=== PATIENT | male | born 1985 | race Two or more races ===

== ENCOUNTER 2019-09-29 18:09 | Emergency (ER) | payer MEDICAID, OTHER ==
[~2019-09-29] VITALS: Ht 185.4 cm; Wt 71.0 kg
[2019-09-29 20:25] VITALS: BP 119/89
== END 2019-09-29 20:30 | disposition home or self-care (01) ==
LOC: ER 18:18
DX: Z76.0 Encounter for issue of repeat prescription (principal); G40.909 Epilepsy, unspecified, not intractable, without status epilepticus
CPT/HCPCS: 99283

== ENCOUNTER 2022-03-10 11:19 | Emergency (ER) | payer MEDICAID ==
[~2022-03-10] VITALS: Ht 182.9 cm; Wt 82.0 kg
[2022-03-10] MEDS ORDERED: SODIUM CHLORIDE 0.9% 1,000 ML IV ONE (12:15)
[2022-03-10 12:23] LABS: BASOPHILS % 0.3 % (0.0-2.0); EOSINOPHILS % 2.1 % (0.0-5.0); HEMATOCRIT. 42.1 % (42.0-52.0); HEMOGLOBIN. 13.7 g/dL (14.0-18.0); MEAN CORPUSCULAR HEMOGLOBIN 27.4 pg (28.0-32.0); MEAN CORPUSCULAR VOLUME 83.9 fL (80.0-94.0); MEAN PLATELET VOLUME 8.3 fl (7.4-10.4); NEUTROPHILS % 69.6 % (40.0-76.0); PLATELET 188 x1000/uL (130-400); RED BLOOD CELL COUNT 5.01 mill/uL (4.7-6.1); RED CELL DISTRIBUTION WIDTH 13.8 % (11.6-14.6)
[2022-03-10 12:33] LABS: CHLORIDE 108 mEq/L (98-107)
[2022-03-10 12:36] LABS: CLARITY URINE CLEAR (CLEAR); COLOR URINE YELLOW (YELLOW); KETONES URINE TRACE (NEGATIVE); LEUKOCYTE ESTERASE URINE NEGATIVE (NEGATIVE); NITRITE URINE NEGATIVE (NEGATIVE); OCCULT BLOOD URINE NEGATIVE (NEGATIVE); PH URINE 7.5 (4.5-8.0); PROTEIN URINE TRACE (NEGATIVE); SPECIFIC GRAVITY URINE 1.021 (1.005-1.030)
[2022-03-10 12:38] LABS: ETHANOL BLOOD < 10 mg/dL
[2022-03-10 12:42] LABS: VALPROIC ACID < 3.0 ug/mL (50-100)
[2022-03-10 12:59] LABS: *AMPHETAMINES SCREEN URINE NEGATIVE (NEGATIVE); *BARBITURATES SCREEN URINE NEGATIVE (NEGATIVE); *BENZODIAZEPINES SCREEN URINE NEGATIVE (NEGATIVE)
[2022-03-10 13:00] LABS: *COCAINE SCREEN URINE NEGATIVE (NEGATIVE); CANNABINOID URINE SCREEN PRESUMTIVE POSITIVE (NEGATIVE); METHADONE URINE SCREEN NEGATIVE (NEGATIVE); OPIATES URINE SCREEN NEGATIVE (NEGATIVE); PHENCYCLIDINE URINE SCREEN NEGATIVE (NEGATIVE)
[2022-03-10 13:10] VITALS: BP 90/56
[2022-03-10] MEDS ORDERED: LEVETIRACETAM 500MG TABLET PO ONE (13:15)
== END 2022-03-10 13:34 | disposition home or self-care (01) ==
LOC: ER 12:02
DX: G40.909 Epilepsy, unspecified, not intractable, without status epilepticus (principal); H11.31 Conjunctival hemorrhage, right eye; Z87.891 Personal history of nicotine dependence
CPT/HCPCS: 36415; 71045; 80053; 80165; 80185; 80305; 80320; 81003; 85025; 96360; 99284; J7030; G0480

== ENCOUNTER 2022-05-04 23:55 | Emergency (ER) | payer MEDICAID ==
[~2022-05-04] VITALS: Ht 182.9 cm; Wt 83.5 kg
[2022-05-05] MEDS ORDERED: SODIUM CHLORIDE 0.9% 1,000 ML IV ONE (01:45)
[2022-05-05] MEDS ORDERED: ONDANSETRON HCL 4MG/2ML INJ IV ONE (04:30)
[2022-05-05] MEDS ORDERED: MORPHINE SULFATE 4 MG/ML CPJ (NOT FOR IM USE) IV ONE (04:30)
[2022-05-05] MEDS ORDERED: IOHEXOL-300 100 ML BOTTLE ONE (05:34)
[2022-05-05] MEDS ORDERED: TOPUD PO (06:56)
[2022-05-05 07:40] VITALS: BP 130/79
== END 2022-05-05 07:50 | disposition home or self-care (01) ==
LOC: ER 23:55
DX: R10.2 Pelvic and perineal pain (principal); M54.50 Low back pain, unspecified; G40.909 Epilepsy, unspecified, not intractable, without status epilepticus; V43.52XA Car driver injured in collision with other type car in traffic accident, initial encounter; Y93.89 Activity, other specified; Y92.488 Other paved roadways as the place of occurrence of the external cause
CPT/HCPCS: 71045; 71260; 72170; 74177; 96374; 96375; 99291; J2270; J2405; J7030; Q9967

== ENCOUNTER 2024-12-13 00:57 | Emergency (ER) | payer MEDICAID, OTHER ==
[~2024-12-13] VITALS: Ht 182.9 cm; Wt 82.0 kg
[~2024-12-13 00:57] MED LIST: TOPUD PO
[2024-12-13 00:59] VITALS: TEMP 36.8; O2SAT 98
[2024-12-13] MEDS: LEVETIRACETAM 1000MG PREMIX 100 ML IV ONE (01:56)
[2024-12-13 02:23] VITALS: BP 116/70; PULSE 62; RESP 20; O2SAT 100
== END 2024-12-13 02:36 | disposition home or self-care (01) ==
LOC: ER 00:57
DX: R56.9 Unspecified convulsions (principal)
CPT/HCPCS: 99284; 96365; J1953